=== PATIENT | female | born 1960 | race Caucasian/White ===

== ENCOUNTER 2017-11-19 07:52 | Inpatient (IN) | payer MEDICAID ==
[2017-11-13 11:13] LABS: BASOPHILS # (AUTO) 0.1 X10'3 (0-0.2); BASOPHILS % (AUTO) 0.8 % (0-1); EOSINOPHILS # (AUTO) 0.3 X10'3 (0-0.9); EOSINOPHILS % (AUTO) 4.4 % (0-6); LYMPHOCYTES # (AUTO) 2.3 X10'3 (1.1-4.8); LYMPHOCYTES % (AUTO) 30.3 % (21-51); MEAN CORPUSCULAR HEMOGLOBIN 29.3 PG (27.0-31.0); MEAN CORPUSCULAR HGB CONC 33.6 % (33.0-36.5); MEAN CORPUSCULAR VOLUME 87.2 FL (78-98); MEAN PLATELET VOLUME 7.4 FL (7.4-10.4); MONOCYTES # (AUTO) 0.6 X10'3 (0-0.9); NEUTROPHILS # (AUTO) 4.4 X10'3 (1.8-7.7); NEUTROPHILS % (AUTO) 56.5 % (42-75); PRE OP HEMATOCRIT 39.8 % (35.0-45.0); PRE OP HEMOGLOBIN 13.4 g/dL (12.0-16.0); PRE OP PLATELET COUNT 281 X10'3 (140-440); RED BLOOD COUNT 4.57 X10'6 (4.20-5.60); RED CELL DISTRIBUTION WIDTH 13.1 % (11.5-14.5)
[2017-11-13 11:30] LABS: ALBUMIN 3.9 G/DL (3.4-5.0); ALBUMIN/GLOBULIN RATIO 1.2 (1.1-1.5); ALKALINE PHOSPHATASE 56 IU/L (46-116); BLOOD UREA NITROGEN 14 MG/DL (7-18); BUN/CREATININE RATIO 25.5 (6.6-38.0); CALCIUM 9.1 MG/DL (8.5-10.1); CHLORIDE 99 MMOL/L (99-107); CREATININE 0.55 MG/DL (0.40-0.90); PRE OP ALT 24 U/L (30-65); PRE OP ANION GAP 7 (8-16); PRE OP AST 21 U/L (10-37); PRE OP BILIRUB, TOTAL 0.4 MG/DL (0.0-1.0); PRE OP GLUCOSE 93 MG/DL (70-104); PRE OP POTASSIUM 4.3 MMOL/L (3.4-5.1); PRE OP SODIUM 134 MMOL/L (135-145); TOTAL CARBON DIOXIDE 28.3 MMOL/L (24-32); TOTAL PROTEIN 7.2 G/DL (6.4-8.2); eGFR > 90 ML/MIN
[~2017-11-19] VITALS: Ht 172.7 cm; Wt 77.5 kg
[2017-11-19] VITALS (19 sets, daily range): BP systolic 94–144; BP diastolic 41–83
[~2017-11-19 07:52] MED LIST: ACET-2119 PO; ASCO500C15 PO; ASPI-612 PO; IBUP-1984 PO; MULT-1085 PO; acetaminophen 325mg tablet PO ONE; ceFAZolin inj. 1,000 MG in dextrose 5%-water 50ml 50 ML IV ONE; cefazolin/dext.iso 2gm/50ml 50 ML IV ONE; famotidine 20mg tablet PO ONE; gabapentin 300mg capsule PO ONE; metoclopramide 5 mg/ml inj IV ONE; oxyCODONE SR 10mg (sust. release) tab PO ONE; ringers solution, lacted 1,000 ML IV SCH; tranexamic acid inj. 1,000 MG in normal saline 100ml IV soln 90 ML IV ONE; vancomycin inj 1,500 MG in normal saline 300ml IV soln IV ONE
[2017-11-19] MEDS ORDERED: LIDOcaine 1% (10mg/ml) 2ml vial ONE (08:19)
[2017-11-19] MEDS ORDERED: 0.9 % SODIUM CHLORIDE 10 ML VIAL ONE (08:39)
[2017-11-19] MEDS ORDERED: oxyCODONE SR 10mg (sust. release) tab PO ONE (08:45)
[2017-11-19] MEDS ORDERED: ketorolac trometh. 30mg/ml inj. ONE (08:54)
[2017-11-19] MEDS ORDERED: ROPIVAcaine 0.5% (5mg/ml) 30ml vial ONE ×2 (08:55→14:41)
[2017-11-19] MEDS ORDERED: MORPHINE SULFATE/PF 0.5 MG/ML 10ML AMPUL ONE (08:55)
[2017-11-19] MEDS ORDERED: bacitracin 15gm ointment TP ONE (08:55)
[2017-11-19] MEDS ORDERED: ceFAZolin 1000mg inj ONE (08:55)
[2017-11-19] MEDS ORDERED: phenylephrine 10mg/ml inj IV ONE (13:50)
[2017-11-19] MEDS ORDERED: midazolam 2 mg/2 ml injection ONE (13:52)
[2017-11-19] MEDS ORDERED: fentaNYL/PF 50MCG/1 ML 2ML syringe ONE (13:52)
[2017-11-19] MEDS ORDERED: glycopyrrolate 0.2mg/ml inj ONE (14:20)
[2017-11-19] MEDS ORDERED: vancomycin 1,000mg inj ONE (14:21)
[2017-11-19] MEDS ORDERED: dexamethasone sod phosphate 4mg/ml inj. ONE (14:31)
[2017-11-19] MEDS ORDERED: acetaminophen 325mg tablet PO PRN (15:10)
[2017-11-19] MEDS ORDERED: ondansetron/PF 4mg/2ml inj IV PRN ×2 (15:10→15:30)
[2017-11-19] MEDS ORDERED: magnesium hydroxide 30ml (MOM) UD suspension PO PRN (15:10)
[2017-11-19] MEDS ORDERED: diphenhydrAMINE 25mg capsule PO PRN ×2 (15:10)
[2017-11-19] MEDS ORDERED: bisacodyl 10mg suppository rectal RC PRN (15:10)
[2017-11-19] MEDS ORDERED: oxyCODONE IR 5mg (immed. release) tablet PO PRN (15:10)
[2017-11-19] MEDS ORDERED: ringers solution, lacted 1,000 ML IV SCH (15:29)
[2017-11-19] MEDS ORDERED: fentaNYL/PF 50MCG/1 ML 2ML syringe IV PRN (15:30)
[2017-11-19] MEDS ORDERED: HYDROmorphone 1 mg/ml syringe IV PRN (15:30)
[2017-11-19] MEDS ORDERED: proCHLORperazine 10 MG/2 ml inj IV PRN (15:30)
[2017-11-19] MEDS ORDERED: ceFAZolin inj. 1,000 MG in dextrose 5%-water 50ml 50 ML IV SCH (16:00)
[2017-11-19] MEDS: lactobacillus rhamnosus 10,000 MMU CELLS/CAPSULE PO SCH (17:37)
[2017-11-19] MEDS ORDERED: NORMAL SALINE IV ONE (18:15)
[2017-11-19] MEDS ORDERED: TRANEXAMIC ACID IV ONE (18:15)
[2017-11-19] MEDS: potassium cl 20mEq in 1/2 NS 1,000 ML IV SCH ×2 (18:57→23:45)
[2017-11-19] MEDS: celeCOXIB 100mg capsule PO SCH (19:59)
[2017-11-19] MEDS ORDERED: vancomycin/NS 1 GM ADD-VANTAGE 250 ML IV SCH (20:00)
[2017-11-19] MEDS: acetaminophen 325mg tablet PO SCH (20:00)
[2017-11-19] MEDS: gabapentin 300mg capsule PO SCH (20:07)
[2017-11-19] MEDS ORDERED: sennosides 8.6mg tablet PO SCH (21:00)
[2017-11-19] MEDS: oxyCODONE IR 5mg (immed. release) tablet PO PRN (21:41)
[2017-11-19] MEDS ORDERED: CEFAZOLIN SODIUM/NORMAL SALINE 100 ML IV SCH (23:40)
[2017-11-20] MEDS ORDERED: ceFAZolin inj. 1,000 MG in dextrose 5%-water 50ml 50 ML IV SCH ×2
[2017-11-20] MEDS: acetaminophen 325mg tablet PO SCH ×2 (02:19→07:45)
[2017-11-20 02:39] VITALS: BP 118/73
[2017-11-20] MEDS: oxyCODONE IR 5mg (immed. release) tablet PO PRN ×2 (05:37→10:05)
[2017-11-20 06:00] VITALS: BP 126/76
[2017-11-20 06:37] LABS: BASOPHILS % (AUTO) 0.3 % (0-1); EOSINOPHILS # (AUTO) 0.2 X10'3 (0-0.9); EOSINOPHILS % (AUTO) 1.4 % (0-6); HEMATOCRIT 41.4 % (35.0-45.0); HEMOGLOBIN 13.9 g/dl (12.0-16.0); LYMPHOCYTES # (AUTO) 1.5 X10'3 (1.1-4.8); LYMPHOCYTES % (AUTO) 13.5 % (21-51); MEAN CORPUSCULAR HEMOGLOBIN 29.3 PG (27.0-31.0); MEAN CORPUSCULAR HGB CONC 33.5 % (33.0-36.5); MEAN CORPUSCULAR VOLUME 87.3 FL (78-98); MEAN PLATELET VOLUME 7.3 FL (7.4-10.4); MONOCYTES # (AUTO) 0.7 X10'3 (0-0.9); NEUTROPHILS # (AUTO) 8.8 X10'3 (1.8-7.7); NEUTROPHILS % (AUTO) 78.8 % (42-75); PLATELET COUNT 300 X10'3 (140-440); RED BLOOD COUNT 4.74 X10'6 (4.20-5.60); WHITE BLOOD COUNT 11.2 X10'3 (4.5-11.0)
[2017-11-20] MEDS: potassium cl 20mEq in 1/2 NS 1,000 ML IV SCH (07:09)
[2017-11-20] MEDS: lactobacillus rhamnosus 10,000 MMU CELLS/CAPSULE PO SCH (07:42)
[2017-11-20] MEDS: gabapentin 300mg capsule PO SCH (07:43)
[2017-11-20] MEDS: celeCOXIB 100mg capsule PO SCH (07:43)
[2017-11-20] MEDS ORDERED: enoxaparin 40mg/0.4ml syringe SQ SCH (08:00)
[2017-11-20] MEDS ORDERED: ASPI-1264 PO (09:27)
[2017-11-21] MEDS ORDERED: acetaminophen 325mg tablet PO PRN (15:10)
== END 2017-11-20 12:30 | disposition home or self-care (01) | DRG 302 ==
LOC: PAS IN 07:52 → EDSTATUS 10:00 → ORTHO 4S 16:15
PROVIDERS: ADMIT Orthopaedic Surgery; ATTEND Anesthesiology
PROC: 0SPD0JZ Removal of Synthetic Substitute from Left Knee Joint, Open Approach (ICD-10-PCS; 2017-11-19)
PROC: 0SRD0JZ Replacement of Left Knee Joint with Synthetic Substitute, Open Approach (ICD-10-PCS; 2017-11-19)
PROC: 0SPD09Z Removal of Liner from Left Knee Joint, Open Approach (ICD-10-PCS; 2017-11-19)
PROC: 0SUD09Z Supplement Left Knee Joint with Liner, Open Approach (ICD-10-PCS; 2017-11-19)
PROC: 3E0T3BZ Introduction of Anesthetic Agent into Peripheral Nerves and Plexi, Percutaneous Approach (ICD-10-PCS; 2017-11-19)
PROC: 0SRD0J9 Replacement of Left Knee Joint with Synthetic Substitute, Cemented, Open Approach (ICD-10-PCS; principal; 2017-11-19 13:50)
DX: T84.023A Instability of internal left knee prosthesis, initial encounter (principal); Z88.6 Allergy status to analgesic agent; Y79.2 Prosthetic and other implants, materials and accessory orthopedic devices associated with adverse incidents; Y83.1 Surgical operation with implant of artificial internal device as the cause of abnormal reaction of the patient, or of later complication, without mention of misadventure at the time of the procedure; Z79.899 Other long term (current) drug therapy; Z79.01 Long term (current) use of anticoagulants; Z79.82 Long term (current) use of aspirin; Y92.89 Other specified places as the place of occurrence of the external cause
CPT/HCPCS: 36415; 80053; 85025; 87070; 97116; 97161; J0690; J1100; J1650; J1885; J2250; J2274; J2370; J2765; J2795; J3010; J3370; J3490; J7060; J7120

== ENCOUNTER 2020-01-14 10:52 | Emergency (ER) | payer MEDICAID ==
[~2020-01-14] VITALS: Ht 172.7 cm; Wt 75.0 kg
[~2020-01-14 10:52] MED LIST changes: -acetaminophen 325mg tablet PO ONE; -ceFAZolin inj. 1,000 MG in dextrose 5%-water 50ml 50 ML IV ONE; -cefazolin/dext.iso 2gm/50ml 50 ML IV ONE; -famotidine 20mg tablet PO ONE; -gabapentin 300mg capsule PO ONE; -metoclopramide 5 mg/ml inj IV ONE; -oxyCODONE SR 10mg (sust. release) tab PO ONE; -ringers solution, lacted 1,000 ML IV SCH; -tranexamic acid inj. 1,000 MG in normal saline 100ml IV soln 90 ML IV ONE; -vancomycin inj 1,500 MG in normal saline 300ml IV soln IV ONE
[2020-01-14] MEDS ORDERED: propofol 10mg/ml 20ml vial IV ONE (12:55)
[2020-01-14] MEDS ORDERED: normal saline 1000ML IV soln IVB ONE (12:55)
[2020-01-14 14:35] VITALS: BP 144/73
== END 2020-01-14 14:57 | disposition home or self-care (01) ==
LOC: ER 10:53
DX: S83.195A Other dislocation of left knee, initial encounter (principal); Z98.890 Other specified postprocedural states; Z88.5 Allergy status to narcotic agent; Z79.82 Long term (current) use of aspirin; Z79.899 Other long term (current) drug therapy; X50.1XXA Overexertion from prolonged static or awkward postures, initial encounter; Y93.89 Activity, other specified; Y92.89 Other specified places as the place of occurrence of the external cause; Y99.8 Other external cause status
CPT/HCPCS: 27550; 73560; 93005; 99152; 99285; J7030; 27560